=== PATIENT | female | born 1955 | race Caucasian/White ===

== ENCOUNTER 2018-05-04 11:43 | Emergency (ER) | payer MEDICAID, OTHER ==
[~2018-05-04] VITALS: Ht 162.6 cm; Wt 101.0 kg
[~2018-05-04 11:43] MED LIST: PANT40TA4 PO
[2018-05-04] MEDS ORDERED: HYDROCODONE/ACETAMINOPHEN 5/325MG TABLET PO ONE (15:30)
[2018-05-04] MEDS ORDERED: ETOMIDATE 2MG/ML 10ML VIAL IV ONE (17:15)
[2018-05-04] MEDS ORDERED: MORPHINE SULFATE 4 MG/ML CPJ (NOT FOR IM USE) IV ONE (17:15)
[2018-05-04] MEDS ORDERED: ONDANSETRON HCL 4MG/2ML INJ IV ONE (17:15)
[2018-05-04] MEDS ORDERED: HYDROCODONE/ACETAMINOPHEN 5/325MG TABLET PO PRN (20:30)
[2018-05-04 21:46] VITALS: BP 119/58
== END 2018-05-04 21:51 | disposition home or self-care (01) ==
LOC: ER 14:59
DX: S52.92XA Unspecified fracture of left forearm, initial encounter for closed fracture (principal); S52.612A Displaced fracture of left ulna styloid process, initial encounter for closed fracture; I10 Essential (primary) hypertension; W01.0XXA Fall on same level from slipping, tripping and stumbling without subsequent striking against object, initial encounter; Y93.89 Activity, other specified; Y92.89 Other specified places as the place of occurrence of the external cause; Y99.8 Other external cause status; Z86.718 Personal history of other venous thrombosis and embolism
CPT/HCPCS: 25605; 73110; 73130; 99152; 99285; J2270; J2405; J3490